=== PATIENT | female | born 2000 | race Caucasian/White ===

== ENCOUNTER 2023-11-30 02:25 | Emergency (ER) | payer MEDICAID, OTHER ==
[~2023-11-30] VITALS: Ht 162.6 cm; Wt 59.0 kg
[2023-11-30 03:18] LABS: BASOPHILS % (AUTO) 0.7 % (0.0-2.0); EOSINOPHILS # (AUTO) 0.1 K/uL (0.0-0.7); EOSINOPHILS % (AUTO) 1.4 % (0.0-7.0); HEMATOCRIT 40.3 % (31.2-41.9); LYMPHOCYTES # (AUTO) 1.8 K/uL (0.8-4.8); LYMPHOCYTES % (AUTO) 42.9 % (20.5-51.5); MEAN CORPUSCULAR HEMOGLOBIN 31.5 uug (24.7-32.8); MEAN CORPUSCULAR HGB CONC 35 g/dL (32.3-35.6); MEAN CORPUSCULAR VOLUME 90.6 fL (75.5-95.3); MONOCYTES # (AUTO) 0.3 K/uL (0.1-1.30); PLATELET COUNT (AUTO) 186 K/uL (179-408); RED BLOOD CELL COUNT(AUTO) 4.45 MIL/uL (3.63-4.92); RED CELL DISTRIBUTION WIDTH 13.1 % (12.3-17.7); WHITE BLOOD COUNT (AUTO) 4.2 K/uL (3.8-11.8)
[2023-11-30 03:27] LABS: DIFFERENTIAL COMMENT 1
[2023-11-30 03:31] LABS: CALCIUM 9.4 mg/dL (8.5-10.1); CARBON DIOXIDE 27 mmol/L (21-32); CHLORIDE 108 mmol/L (98-107); CREATININE 0.8 mg/dL (0.6-1.3); GLUCOSE 86 mg/dL (74-106); POTASSIUM 3.7 mmol/L (3.5-5.1); SODIUM SERUM 148 mmol/L (136-145); UREA NITROGEN, BLOOD 9 mg/dL (7-18)
[2023-11-30 04:04] VITALS: O2SAT 98
== END 2023-11-30 04:33 | disposition home or self-care (01) ==
LOC: ER 02:29
DX: U07.1 COVID-19 (principal); R07.89 Other chest pain; F17.200 Nicotine dependence, unspecified, uncomplicated
CPT/HCPCS: 36415; 71045; 84484; 85025; 85651; 86140; 93005; A4606; A4663

== ENCOUNTER 2024-04-11 09:53 | Emergency (ER) | payer OTHER ==
[~2024-04-11] VITALS: Ht 162.6 cm; Wt 52.2 kg
[2024-04-11] MEDS ORDERED: SEMA1PEN SQ (10:08)
[2024-04-11] MEDS ORDERED: LORAZEPAM 0.5 MG TABLET ONE (10:31)
[2024-04-11] MEDS: LORAZEPAM 0.5 MG TABLET PO ONE (10:32)
[2024-04-11 10:34] VITALS: BP 128/80; TEMP 97; O2SAT 99
== END 2024-04-11 10:36 | disposition home or self-care (01) ==
LOC: ER 09:56
DX: F41.0 Panic disorder [episodic paroxysmal anxiety] (principal); F17.200 Nicotine dependence, unspecified, uncomplicated; Z79.899 Other long term (current) drug therapy; Z60.2 Problems related to living alone
CPT/HCPCS: 93005; A4606; A4663

== ENCOUNTER 2024-06-29 20:41 | Emergency (ER) | payer MEDICAID, OTHER ==
[~2024-06-29 20:41] MED LIST: SEMA1PEN SQ
== END 2024-06-29 22:30 | disposition home or self-care (01) ==
LOC: ER 21:47
DX: T47.2X1A Poisoning by stimulant laxatives, accidental (unintentional), initial encounter (principal); Z53.21 Procedure and treatment not carried out due to patient leaving prior to being seen by health care provider; F41.0 Panic disorder [episodic paroxysmal anxiety]; A41.9 Sepsis, unspecified organism; F17.200 Nicotine dependence, unspecified, uncomplicated; Z60.2 Problems related to living alone; Z88.2 Allergy status to sulfonamides; Y92.89 Other specified places as the place of occurrence of the external cause